=== PATIENT | female | born 1990 | race Caucasian/White ===

== ENCOUNTER 2016-12-05 19:26 | Emergency (ER) | payer OTHER ==
[2016-12-05 19:39] VITALS: BMI 19.3
--- NOTE | 2016-12-05 21:46 | PDOC ---
History of Present Illness - General Chief Complaint: Chest Pain Stated Complaint: CHEST PAIN Time Seen by Provider: 12/05/16 21:01 - History of Present Illness Initial Comments: 12/05/16 22:04 26 year old female with with sudden onset of left sided chest pain and palpitation started last night. Past History - Past Medical History Allergies/Adverse Reactions: Allergies Allergy/AdvReac Type Severity Reaction Status Date / Time No Known Allergies Allergy Verified 12/05/16 21:19 Home Medications: Ambulatory Orders NK [No Known Home Medication] 12/05/16 Cardiac Disorders: Yes (tachycardia) - Immunization History Immunization Up to Date: Yes - Psycho/Social/Smoking Cessation Hx Anxiety: Yes Suicidal Ideation: No Smoking History: Never smoked Hx Alcohol Use: No Drug/Substance Use Hx: No Substance Use Type: None Cardiac Specific PMH - Complaint Specific PMHX GERD: No *Physical Exam - Vital Signs Last Vital Signs Temp Pulse Resp BP Pulse Ox 98.6 F 87 18 113/67 100 12/05/16 19:36 12/05/16 19:36 12/05/16 19:36 12/05/16 19:36 12/05/16 20:54 Heart Score/ECG Review - History History: Slightly suspicious - Electrocardiogram EKG: Normal - Age Age: </= 45 - Risk Factors Based on the list above the patient has:: No risk factors known - Troponin Troponin: </= normal limit - Score Heart Score - Total: 0 - ECG Intrepretation Rhythm: Regular Rhythm Comment:: 12/05/16 23:52 80: NSR 12/05/16 23:52 ED Treatment Course - LABORATORY CBC & Chemistry Diagram: 12/05/16 22:01 12/05/16 22:01 - ADDITIONAL ORDERS Additional order review: Laboratory Results 12/05/16 12/05/16 22:01 22:01 Sodium 137 Potassium 4.1 Chloride 103 Carbon Dioxide 25 Anion Gap 9 BUN 17 D Creatinine 0.8 Creat Clearance w eGFR > 60 Random Glucose 75 Calcium 9.2 Total Bilirubin 0.7 D AST 15 ALT 23 Alkaline Phosphatase 50 D Creatine Kinase 90 Troponin I < 0.02 Total Protein 8.1 Albumin 4.6 Serum , Qual Negative 12/05/16 22:01 RBC 4.80 MCV 87.9 MCHC 32.6 RDW 13.4 MPV 8.6 Neutrophils % 58.2 Lymphocytes % 32.6 Monocytes % 7.3 Eosinophils % 1.3 Basophils % 0.6 - RADIOLOGY Radiology Studies Ordered: Category Date Time Status CHEST PA & LAT [RAD] Stat Radiology 12/05/16 21:46 Completed *DC/Admit/Observation/Transfer Diagnosis at time of Disposition: Chest pain Qualifiers: Chest pain type: unspecified Qualified Code(s): R07.9 - Chest pain, unspecified - Discharge Dispostion Disposition: HOME - Patient Instructions Printed Discharge Instructions: DI for Atypical Chest Pain Additional Instructions: take tylenol every 6 hours as needed for pain please follow up with your primary doctor as soon as possible. return to the ER if symptoms worsen.
[2016-12-05 22:06] LABS: BASOPHIL 0.6 % (0-2.0); EOSINOPHIL 1.3 % (0-4.5); MCH 28.6 pg (25.7-33.7); MCHC 32.6 g/dl (32.0-36.0); MEAN CELL VOLUME 87.9 fl (80-96); MEAN PLT VOLUME 8.6 fl (7.5-11.1); NEUTROPHILS 58.2 % (42.8-82.8); PLATELET COUNT 293 K/MM3 (134-434); RDW 13.4 % (11.6-15.6)
[2016-12-05 22:33] LABS: ALBUMIN 4.6 g/dl (3.4-5.0); ANION GAP 9 (8-16); BILIRUBIN,TOTAL 0.7 mg/dL (0.2-1.0); CALCIUM 9.2 mg/dL (8.5-10.1); CO2 25 mmol/L (21-32); CREATININE 0.8 mg/dL (0.55-1.02); GLUCOSE,RANDOM 75 mg/dL (74-106); SGOT/AST 15 U/L (15-37); SGPT/ALT 23 U/L (12-78); TOT PROT 8.1 g/dl (6.4-8.2)
[2016-12-05 22:36] LABS: ALK PHOS 50 U/L (45-117); CPK 90 IU/L (26-192); TROPONIN I < 0.02 ng/ml (0.00-0.05)
--- NOTE | 2016-12-05 23:07 | PDOC ---
*Physical Exam - Vital Signs Last Vital Signs Temp Pulse Resp BP Pulse Ox 98.6 F 87 18 113/67 100 12/05/16 19:36 12/05/16 19:36 12/05/16 19:36 12/05/16 19:36 12/05/16 20:54 ED Treatment Course - LABORATORY CBC & Chemistry Diagram: 12/05/16 22:01 12/05/16 22:01 - ADDITIONAL ORDERS Additional order review: Laboratory Results 12/05/16 22:01 Sodium 137 Potassium 4.1 Chloride 103 Carbon Dioxide 25 Anion Gap 9 BUN 17 D Creatinine 0.8 Creat Clearance w eGFR > 60 Random Glucose 75 Calcium 9.2 Total Bilirubin 0.7 D AST 15 ALT 23 Alkaline Phosphatase 50 D Creatine Kinase 90 Troponin I < 0.02 Total Protein 8.1 Albumin 4.6 12/05/16 22:01 RBC 4.80 MCV 87.9 MCHC 32.6 RDW 13.4 MPV 8.6 Neutrophils % 58.2 Lymphocytes % 32.6 Monocytes % 7.3 Eosinophils % 1.3 Basophils % 0.6 Medical Decision Making - Medical Decision Making 12/05/16 23:07 agree with care from [facility] *DC/Admit/Observation/Transfer Diagnosis at time of Disposition: Chest pain - Discharge Dispostion Disposition: HOME - Patient Instructions Printed Discharge Instructions: DI for Atypical Chest Pain Additional Instructions: take tylenol every 6 hours as needed for pain please follow up with your primary doctor as soon as possible. return to the ER if symptoms worsen.
[2016-12-06 01:22] VITALS: BP 116/72; PULSE 84; TEMP 98.3
--- NOTE | 2016-12-06 15:26 | EKG ---
Test Reason : Blood Pressure : / mmHG Vent. Rate : 080 BPM Atrial Rate : 080 BPM P-R Int : 148 ms QRS Dur : 084 ms QT Int : 372 ms P-R-T Axes : 061 069 053 degrees QTc Int : 429 ms NORMAL SINUS RHYTHM NORMAL ECG NO PREVIOUS ECGS AVAILABLE Confirmed by NING SCHRADER, JOSE ([id number]) on 12/06/2016 3:26:19 PM Referred By: Confirmed By:JOSE BARCLAY MD
== END 2016-12-06 01:22 | disposition home or self-care (01) ==
LOC: JER 19:26
DX: R07.89 Other chest pain (principal)
CPT/HCPCS: 36415; 71020-TC; 80053; 84484; 84703; 85025; 93005; 93010; 99282-25

== ENCOUNTER 2024-03-03 18:01 | Emergency (ER) | payer BC, OTHER ==
[2024-03-03 18:38] VITALS: BP 122/76; PULSE 98; RESP 14; TEMP 98.7; BMI 19.6
[2024-03-03 19:40] LABS: EPI CELLS 14 /uL (0-25.1); HYALINE CASTS 2 /uL (0-3.1); URINE APPEARANCE CLOUDY; URINE BACTERIA 296 /uL (0-1359); URINE BILIRUBIN NEGATIVE (NEGATIVE); URINE COLOR YELLOW; URINE GLUCOSE (UA) TRACE (NEGATIVE); URINE KETONE NEGATIVE (NEGATIVE); URINE LEUK ESTERASE 2+ (NEGATIVE); URINE NITRITE NEGATIVE (NEGATIVE); URINE PROTEIN NEGATIVE (NEGATIVE); URINE RBC 24 /uL (0-23.9); URINE UROBILINOGEN 0.2 mg/dL (0.2-1.0); URINE WBC 452 /uL (0-25.8)
[2024-03-03 19:41] LABS: HCG,QUALITATIVE URINE Negative
[2024-03-03 23:32] LABS: HIV INTERPRETATION NEGATIVE (NEGATIVE)
== END 2024-03-03 20:54 | disposition home or self-care (01) ==
LOC: JER 18:01 → JERFT 18:01
DX: R30.0 Dysuria (principal); R31.9 Hematuria, unspecified
CPT/HCPCS: 36415; 76775-TC; 81003; 84703; 86738; 86803; 87086; 87109; 87389; 87491; 87591; 99284-25